=== PATIENT | female | born 1985 | race Caucasian/White ===

== ENCOUNTER 2016-08-02 15:35 | Emergency (ER) | payer OTHER ==
[~2016-08-02] VITALS: Ht 152.4 cm; Wt 57.4 kg
[~2016-08-02 15:35] MED LIST: AMOXICILLIN875 MG PO; EXCEDRIN EXTRA1 EACH PO; FIORICET,ESG1 TABLET PO; LABETALOL HCL200 MG PO; MOTRIN800 MG PO; NAPROSYN500 MG PO; NOHOMEMEDS; NORCO 5/3251 TABLET PO; OMEPRAZOLE20 MG PO; PRENATAL TABLE1 EAC3 PO; TRANDATE200 MG PO; TUMS500 M1 PO; VICODIN 5-3001 EACH PO; ZANTAC150 MG PO; ZOFRAN4 MG PO
[2016-08-02 16:18] LABS: MCH 29.2 PG (29.0-34.0); MCHC 33.3 G/DL (30.0-36.0); MCV 87.5 FL (83-99); MEAN PLAT.VOLUME 9.9 uM^3 (9.5-12.4); PLATELET COUNT 358 K/uL (156-360); RBC DIS.WIDTH-CV 12.5 % (11.8-14.6); RBC DIS.WIDTH-SD 40.1 % (39-53); RED BLOOD COUNT 5.14 M/uL (3.80-5.20); WHITE BLOOD COUNT 8.4 K/uL (4.1-10.2)
[2016-08-02 16:24] LABS: ADD MIUA? YES; BILIRUBIN NEGATIVE; BLOOD NEGATIVE; COLOR YELLOW ((YELLOW)); GLUCOSE (STRIP) NEGATIVE; KETONES NEGATIVE; LEUKOCYTES SMALL; NITRITE NEGATIVE; PROTEIN (STRIP) NEGATIVE; UROBILINOGEN 0.2 MG/DL (0.2-1.0)
[2016-08-02 16:27] LABS: CHLORIDE 108 mEq/L (99-109); POTASSIUM 4.2 mEq/L (3.7-5.4); SODIUM 138 mEq/L (136-147)
[2016-08-02 16:29] LABS: GLUCOSE 89 mg/dL (70-99)
[2016-08-02 16:30] LABS: ANION GAP 11 MEQ/L (2-14)
[2016-08-02 16:31] LABS: TOTAL BILIRUBIN 0.2 mg/dL (0.0-1.0)
[2016-08-02 16:32] LABS: ALKALINE PHOSPHATASE 66 IU/L (3-129)
[2016-08-02 16:33] LABS: GFR ESTIMATE (CALCULATED) > 59 mL/min/
[2016-08-02 16:34] LABS: UREA NITROGEN (BUN) 18 mg/dL (9-23)
[2016-08-02 16:36] LABS: LIPASE 14 U/L (1.0-51.0)
[2016-08-02 16:43] LABS: QUANTITATIVE HCG < 4.0 MIU/ML
[2016-08-02 17:05] LABS: CASTS NONE SEEN /LPF; EPITHELIAL CELLS 3+ /HPF; MUCUS 2+ /LPF
[2016-08-02 17:06] LABS: BACTERIA 2+ /HPF; RED BLOOD CELLS NONE SEEN /HPF (0-5); UCUL ADDED? NO; WHITE BLOOD CELLS 0-5 /HPF (0-5)
[2016-08-02] MEDS ORDERED: ZOFRAN ODT4 MG PO (19:31)
[2016-08-02] MEDS ORDERED: BENTYL20 MG PO (19:31)
[2016-08-02 19:48] VITALS: BP 116/84
== END 2016-08-02 19:56 | disposition home or self-care (01) ==
LOC: EME 15:35
DX: R10.9 Unspecified abdominal pain (principal); R11.0 Nausea; R42 Dizziness and giddiness; I10 Essential (primary) hypertension; Z87.442 Personal history of urinary calculi; F17.200 Nicotine dependence, unspecified, uncomplicated
CPT/HCPCS: 74176; 80053; 81003; 83690; 84702; 85027; 99281; 99284; J1885; J2405; J7030

== ENCOUNTER 2017-01-05 22:17 | Outpatient (CLI) | payer OTHER ==
[~2017-01-05 22:17] MED LIST changes: +BENTYL20 MG PO; +ZOFRAN ODT4 MG PO
[2017-01-05 22:21] VITALS: BP 109/55
[2017-01-05] MEDS ORDERED: WOMEN MULTIVIT1 EACH PO (22:32)
[2017-01-05] MEDS ORDERED: FIORICET 50-301 EACH PO (22:32)
[2017-01-05 23:18] LABS: ADD MIUA? NO; BILIRUBIN NEGATIVE; BLOOD NEGATIVE; COLOR STRAW ((YELLOW)); GLUCOSE (STRIP) NEGATIVE; KETONES NEGATIVE; LEUKOCYTES NEGATIVE; NITRITE NEGATIVE; PROTEIN (STRIP) NEGATIVE; SPECIFIC GRAVITY 1.002 (1.000-1.030); UROBILINOGEN 0.2 MG/DL (0.2-1.0)
[2017-01-06 00:15] LABS: ADD MEDTOX COMMENT Y; AMPHETAMINE NEGATIVE (500 ng/mL); BARBITURATES PRESUMPTIVE POSITIVE (200 ng/mL); BENZODIAZEPINES NEGATIVE (150 ng/mL); COCAINE NEGATIVE (150 ng/mL); INTERNAL CONTROLS VALID? YES; METHADONE NEGATIVE (200 ng/mL); METHAMPHETAMINE NEGATIVE (500 ng/mL); OPIATES (MORPHINE) NEGATIVE (100 ng/mL); OXYCODONE NEGATIVE (100 ng/mL); PHENCYCLIDINE NEGATIVE (25 ng/mL); PROPOXYPHENE NEGATIVE (300 ng/mL); THC CANNABINOIDS NEGATIVE (50 ng/mL); TRICYCLIC ANTIDEPRESSANTS NEGATIVE (300 ng/mL)
[2017-01-06] MEDS ORDERED: REGLAN5 MG PO (00:24)
[2017-01-06] MEDS ORDERED: ASPIRIN81 M2 PO (00:25)
[2017-01-06] MEDS ORDERED: ZANTAC150 MG PO (00:26)
[2017-01-06 01:20] LABS: CANDIDA DNA PROBE NEGATIVE; GARDNERELLA DNA PROBE NEGATIVE; INTERNAL CONTROL VALID? YES
[2017-01-06 07:56] LABS: UCUL ADDED? NO
== END 2017-01-06 00:35 | disposition home or self-care (01) ==
LOC: LDRP-OP 22:17 → 2WEST 22:18 → LDRP-OP 06-09 14:45
PROVIDERS: Advanced Practice Midwife
DX: O26.892 Other specified pregnancy related conditions, second trimester (principal); R10.9 Unspecified abdominal pain; O99.332 Smoking (tobacco) complicating pregnancy, second trimester; F17.200 Nicotine dependence, unspecified, uncomplicated; O36.4XX0 Maternal care for intrauterine death, not applicable or unspecified; O30.012 Twin pregnancy, monochorionic/monoamniotic, second trimester; Z3A.21 21 weeks gestation of pregnancy
CPT/HCPCS: 81003; 84999; 87086; 87480; 87510; 87660; G0378

== ENCOUNTER 2017-04-02 20:05 | Emergency (ER) | payer OTHER ==
[~2017-04-02] VITALS: Ht 152.4 cm; Wt 57.2 kg
[~2017-04-02 20:05] MED LIST changes: +ASPIRIN81 M2 PO; +FIORICET 50-301 EACH PO; +REGLAN5 MG PO; +WOMEN MULTIVIT1 EACH PO
[2017-04-02] MEDS ORDERED: PERCOCET 5/31 TABLET PO (20:52)
[2017-04-02] MEDS ORDERED: KEFLEX500 MG PO (21:09)
[2017-04-02 21:14] VITALS: BP 126/54
== END 2017-04-02 21:15 | disposition home or self-care (01) ==
LOC: EME 20:05
DX: O90.89 Other complications of the puerperium, not elsewhere classified (principal); G89.18 Other acute postprocedural pain; Z48.817 Encounter for surgical aftercare following surgery on the skin and subcutaneous tissue; I10 Essential (primary) hypertension; F17.200 Nicotine dependence, unspecified, uncomplicated; Z79.82 Long term (current) use of aspirin
CPT/HCPCS: 99281; 99283

== ENCOUNTER 2017-10-16 11:58 | Emergency (ER) | payer OTHER ==
[~2017-10-16] VITALS: Ht 152.4 cm; Wt 55.5 kg
[~2017-10-16 11:58] MED LIST changes: +KEFLEX500 MG PO; +PERCOCET 5/31 TABLET PO
[2017-10-16 13:18] LABS: HEMATOCRIT 42.2 % (36.0-46.0); HEMOGLOBIN 14.3 G/DL (11.9-15.5); MCH 30.1 PG (29.0-34.0); MCHC 33.9 G/DL (30.0-36.0); MCV 88.8 FL (83-99); PLATELET COUNT 256 K/uL (156-360); RBC DIS.WIDTH-CV 12.4 % (11.8-14.6); RBC DIS.WIDTH-SD 40.2 % (39-53); RED BLOOD COUNT 4.75 M/uL (3.80-5.20); WHITE BLOOD COUNT 6.1 K/uL (4.1-10.2)
[2017-10-16 13:38] LABS: TROP-I INTERPRETATION NEGATIVE; TROPONIN-I < 0.01 ng/mL (0.0-0.30)
[2017-10-16 13:49] LABS: CHLORIDE 106 MEQ/L (99-109); CREATININE 0.8 MG/DL (0.6-1.3); GFR ESTIMATE (CALCULATED) > 59 mL/min/; GLUCOSE 81 mg/dL (70-99); POTASSIUM 4.5 MEQ/L (3.7-5.4); SODIUM 139 MEQ/L (136-147); UREA NITROGEN (BUN) 15 mg/dL (9-23)
[2017-10-16 15:56] LABS: TROP-I INTERPRETATION NEGATIVE; TROPONIN-I < 0.01 ng/mL (0.0-0.30)
[2017-10-16 16:53] VITALS: BP 108/58
== END 2017-10-16 16:55 | disposition home or self-care (01) ==
LOC: EME 11:58
PROVIDERS: Physician Assistant Medical
DX: R07.9 Chest pain, unspecified (principal); I10 Essential (primary) hypertension; Z82.49 Family history of ischemic heart disease and other diseases of the circulatory system; Z87.442 Personal history of urinary calculi; F17.290 Nicotine dependence, other tobacco product, uncomplicated; Z79.82 Long term (current) use of aspirin
CPT/HCPCS: 71046; 80048; 84484; 85027; 93005; 99281; 99284